=== PATIENT | female | born 1980 | race Caucasian/White ===

== ENCOUNTER → 2017-11-19 | Outpatient (CLI) | payer OTHER ==
[~2017-11-19] MED LIST: FLUT0.0529 NAE; IUD'IUD INT UTER
== END | disposition home or self-care (01) ==
LOC: C.LABSPEC 17:35
PROVIDERS: ATTEND Obstetrics & Gynecology
DX: O09.521 Supervision of elderly multigravida, first trimester (principal)

== ENCOUNTER → 2017-11-19 | Outpatient (CLI) | payer OTHER | END | disposition home or self-care (01) | LOC: C.PAPS 07:59 | PROVIDERS: ATTEND Obstetrics & Gynecology | DX: O09.521 Supervision of elderly multigravida, first trimester (principal) ==

== ENCOUNTER → 2017-11-22 | Outpatient (CLI) | payer OTHER ==
[2017-11-22 12:15] LABS: BASO % 0.4 %; BASO ABS # 0.03 K/uL (0-0.2); EOS ABS # 0.23 K/uL (0-0.5); HEMATOCRIT 36.4 % (37-47); HEMOGLOBIN 12.6 g/dL (12.0-16.0); IG# 0.02 K/uL (0.00-0.02); LYMPH % 25.3 %; LYMPH ABS # 1.91 K/uL (1.2-3.4); MEAN CELL VOLUME 89.9 fL (80-100); MEAN CORPUSCULAR HEMOGLOBIN 31.1 pg (25-34); MEAN CORPUSCULAR HGB CONC 34.6 g/dl (32-36); MEAN PLATELET VOLUME 11.2 fL (7.4-10.4); MONO % 7.3 %; MONO ABS # 0.55 K/uL (0.11-0.59); NEUT % 63.7 %; NEUT ABS # 4.82 K/uL (1.4-6.5); PLATELET COUNT 232 K/uL (130-400); RED CELL DISTRIBUTION WIDTH CV 12.9 % (11.5-14.5); RED CELL DISTRIBUTION WIDTH SD 42.1 fL (36.4-46.3); WHITE BLOOD COUNT 7.56 K/uL (4.8-10.8)
== END | disposition home or self-care (01) ==
LOC: C.LAB1850 10:03
PROVIDERS: ATTEND Obstetrics & Gynecology
DX: O09.521 Supervision of elderly multigravida, first trimester (principal)

== ENCOUNTER → 2017-12-10 | Outpatient (CLI) | payer OTHER | END | disposition home or self-care (01) | LOC: C.LABSPEC 17:26 | PROVIDERS: ATTEND Obstetrics & Gynecology | DX: N76.0 Acute vaginitis (principal) ==

== ENCOUNTER → 2017-12-31 | Outpatient (CLI) | payer OTHER | END | disposition home or self-care (01) | LOC: C.LAB1850 13:43 | PROVIDERS: ATTEND Obstetrics & Gynecology | DX: O09.522 Supervision of elderly multigravida, second trimester (principal); Z3A.00 Weeks of gestation of pregnancy not specified ==

== ENCOUNTER → 2018-03-24 | Outpatient (CLI) | payer OTHER ==
[2018-03-24 12:15] LABS: HEMATOCRIT 36.4 % (37-47); HEMOGLOBIN 12.2 g/dL (12.0-16.0)
== END | disposition home or self-care (01) ==
LOC: C.LAB1850 10:34
PROVIDERS: ATTEND Obstetrics & Gynecology
DX: O09.523 Supervision of elderly multigravida, third trimester (principal); Z3A.00 Weeks of gestation of pregnancy not specified

== ENCOUNTER 2018-06-14 10:18 | Outpatient (CLI) | payer OTHER | END 2018-06-14 12:55 | disposition home or self-care (01) | LOC: C.LD 10:18 → C.OPB 10:18 → UNDOADMIN 10:18 → C.OPB 12:55 → EDSTATUS 06-15 13:22 | PROVIDERS: ATTEND Obstetrics & Gynecology | DX: O09.523 Supervision of elderly multigravida, third trimester (principal); Z3A.00 Weeks of gestation of pregnancy not specified ==

== ENCOUNTER 2018-06-18 02:32 | Inpatient (IN) | payer OTHER ==
[~2018-06-18] VITALS: Ht 167.6 cm; Wt 83.6 kg
[2018-06-18] MEDS ORDERED: LACTATED RINGER'S 1000ML 1,000 ML IV PRN (02:35)
[2018-06-18] MEDS ORDERED: LACTATED RINGER'S 1000ML 1,000 ML IV SCH (02:35)
[2018-06-18 03:11] LABS: HEMOGLOBIN 13.2 g/dL (12.0-16.0); MEAN CELL VOLUME 92.2 fL (80-100); MEAN CORPUSCULAR HEMOGLOBIN 31.2 pg (25-34); MEAN CORPUSCULAR HGB CONC 33.8 g/dl (32-36); MEAN PLATELET VOLUME 12.2 fL (7.4-10.4); PLATELET COUNT 174 K/uL (130-400); RED CELL DISTRIBUTION WIDTH CV 13.3 % (11.5-14.5); RED CELL DISTRIBUTION WIDTH SD 44.2 fL (36.4-46.3); WHITE BLOOD COUNT 10.49 K/uL (4.8-10.8)
[2018-06-18 04:15] VITALS: Ht 167.6 cm; Wt 83.6 kg
[2018-06-18] MEDS ORDERED: HYDROCORTISONE ACETATE 25 MG SUPP PR PRN (04:15)
[2018-06-18] MEDS ORDERED: BENZOCAINE 20% AER SPR 82.5 GM CAN EXT PRN (04:15)
[2018-06-18] MEDS ORDERED: LANOLIN OINT EXT PRN (04:15)
[2018-06-18] MEDS ORDERED: OXYTOCIN 30 UNITS/500ML NSS IV PRN (04:15)
[2018-06-18] MEDS ORDERED: OXYCODONE/ACETAMINOPHEN 5-325 TAB PO PRN (04:15)
[2018-06-18] MEDS ORDERED: ACETAMINOPHEN 325 MG TAB PO PRN (04:15)
[2018-06-18] MEDS ORDERED: SUPERCREAM 0.870 % 15GM JAR EXT PRN (04:15)
[2018-06-18] MEDS ORDERED: PRENTAB65 PO (04:23)
--- NOTE | 2018-06-18 04:30 | Vaginal Delivery Summary ---
Vaginal Delivery Summary Predelivery diagnoses: 37-year-old 001 at 40 weeks 3 days, spontaneous labor, advanced maternal age Postdelivery diagnoses: Same plus avulsion of cord during placental delivery Procedure: Spontaneous vaginal delivery, manual extraction of placenta Surgeon: Dr. Starkey Findings: Viable male , Apgars 9 and 10. Weight pending, please see nursery records. First-degree perineal laceration, hemostatic. Estimated blood loss: 300 mL Complications: Avulsion of umbilical cord during delivery of placenta, requiring manual extraction Description of delivery: The patient arrived in spontaneous labor, progressed to complete and began to push. In the knee-chest position, she spontaneously vaginally delivered a viable male from the cephalic presentation. Rupture of membranes occurred after delivery of head. The head delivered in right occiput anterior position, nuchal cord 1 was noted and easily reduced. The anterior shoulder was delivered polyp followed by posterior shoulder followed by body. A spontaneous cry was heard, the cord was doubly clamped and cut and the baby was handed to mother. Cord blood was obtained. During active management of the third stage of labor, the umbilical cord avulsed from the placenta. The placenta was then removed via manual extraction. A sweep of the uterus after delivery of the placenta revealed a large piece of membranes, this was gently removed using ring forceps. Pitocin was given and the uterus became firm. The cervix vagina and perineum were inspected, a first-degree perineal laceration was noted, this was hemostatic and patient did not desire repair. Excellent hemostasis was noted. Mother and baby are recovering in stable and good condition in the room. Sponge, instrument counts are correct at the conclusion of the delivery 2.
[2018-06-18] MEDS ORDERED: CEFAZOLIN IV 1,000 MG in DEXTROSE 5% 50ML 50 ML IV SCH (04:45)
[2018-06-18] MEDS: CEFAZOLIN IV 1,000 MG in SYRINGE 0 ML IV SCH ×3 (05:34→21:11)
[2018-06-18 06:15] VITALS: BP 115/77; PULSE 69; TEMP 36.8
[2018-06-18 07:45] VITALS: BP 111/73; PULSE 79; TEMP 36.7
[2018-06-18] MEDS: DOCUSATE SODIUM 100 MG CAP PO SCH ×2 (08:11→19:46)
[2018-06-18] MEDS: IBUPROFEN 600 MG TAB PO PRN ×4 (08:15→23:49)
[2018-06-18 12:15] VITALS: BP 114/73; PULSE 79; TEMP 36.6
[2018-06-18 15:57] VITALS: BP 120/81; PULSE 58; TEMP 36.5; O2SAT 99
[2018-06-18 19:48] VITALS: BP 122/77; PULSE 74; TEMP 36.7; O2SAT 97
[2018-06-18 23:45] VITALS: BP 115/73; PULSE 71; TEMP 36.6; O2SAT 98
[2018-06-19 04:30] VITALS: BP 109/69; PULSE 73; TEMP 36.7; O2SAT 97
[2018-06-19 07:00] LABS: HEMOGLOBIN 11.8 g/dL (12.0-16.0)
[2018-06-19 08:30] VITALS: BP 111/74; PULSE 74; TEMP 36.7
[2018-06-19] MEDS: DOCUSATE SODIUM 100 MG CAP PO SCH (08:37)
[2018-06-19] MEDS ORDERED: BISACODYL 5 MG TABEC ONE (08:38)
--- NOTE | 2018-06-19 09:12 | Progress Note ---
Subjective Jun 19, 2018. Subjective conversation w/ patient, physical exam, lab review Ambulation: ambulating normally Voiding: no voiding problems Passing Gas: Yes Diet Tolerance: Regular Diet Lochia: Small Feeding Type: Breast Feeding Pain: controlled Objective Vital Signs Date Time Temp Pulse Resp B/P (MAP) Pulse Ox O2 Delivery O2 Flow Rate FiO2 06/19/18 04:30 36.7 73 16 109/69 (82) 97 Room Air 06/18/18 23:45 36.6 71 16 115/73 (87) 98 Room Air 06/18/18 23:45 98 Room Air 06/18/18 19:48 36.7 74 18 122/77 (92) 97 Room Air 06/18/18 15:57 36.5 58 18 120/81 (94) 99 Room Air 06/18/18 15:57 Room Air 06/18/18 12:15 36.6 79 20 114/73 (87) Physical Exam General Appearance: WELL-APPEARING, WD/WN, NO APPARENT DISTRESS Abdomen: non tender, soft Fundus: Firm, Non-Tender, Relation to Umbilicus (at u) Extremities: non-tender, normal inspection, no pedal edema Laboratory Results Last 24 Hours Test 06/19/18 06:21 Hemoglobin 11.8 g/dL Hematocrit 35.0 % Assessment and Plan Post- Day#: 1 Continue Routine Care: Doing well. Plan d/c. Instructions given.
--- NOTE | 2018-06-19 09:14 | Discharge Instructions ---
Discharge Instructions Date of Service Jun 19, 2018. Admission Reason for Admission: LABOR Discharge Discharge Diagnosis / Problem: s/p vaginal delivery Discharge Goals Goal(s): Routine recovery after delivery Medications Continue Dispensed Medications: supercream, dermaplast, tucks, lansinoh Activity Recommendations Activity Limitations: per Instructions/Follow-up section . Instructions / Follow-Up Instructions / Follow-Up ACTIVITY RECOMMENDATIONS: * Gradual return to full activity over the next 2-3 weeks. * No lifting - nothing heavier than baby over the next 2-3 weeks. * Do not engage in vigorous exercise, sexual activity or sports until cleared by your physician. * Do not drive or operate any motorized equipment until cleared by your physician. * You may shower/bathe daily. MEDICATIONS: For discomfort or pain, you may use Acetaminophen (Tylenol), Ibuprofen (Advil), or Naproxen (Aleve) following the package directions. For constipation you may use Colace following the package directions. BREAST CARE: If you are not breast feeding: * Wear a supportive bra 24 hours a day for one to two weeks. * Avoid stimulating your breasts and nipples as much as possible during the first few weeks after delivery. * When taking a shower, have the warm water hit your back, not breasts. * When your breasts feel full, apply ice packs. Usually three to four times a day helps ease the discomfort. * Take a mild pain medication (Tylenol / Motrin) when you are uncomfortable. If breast feeding: * Use breast milk to lubricate nipples. Lansinoh cream may be used for sore nipples. You do not need to remove cream prior to breast feeding. If using a different brand of cream, check the label for directions regarding removal of cream prior to nursing. * Wear a supportive bra. * If having problems with breasts or breast feeding, call a energy consultant or your health care provider. EPISIOTOMY CARE: After delivery, if you have an episiotomy (stitches), the following steps will ease discomfort and aid healing. * For the first 24 hours after delivery, place ice packs next to your episiotomy to help reduce swelling. * After the first 24 hour-period, sitz baths, either portable or in the tub, are suggested. A shower with a shower arm sprayed over the episiotomy may be comforting. * Aracelis care should be done after each voiding and bowel movement. Squirt warm water from a plastic bottle over the perineum (region of the body between the anus and urinary opening) and pat dry. * Use Dermoplast to ease discomfort. Shake container. [place] directly over the episiotomy. Place a Tucks on a clean sanitary pad next to your episiotomy. SPECIAL CARE INSTRUCTIONS: When you are discharged from the hospital, it is important for you to follow the instructions listed below: * During the first week at home, you should be able to care for yourself and your baby. In addition, the usual light household activities are encouraged. * Limit your activities to the way you feel. Do not try to clean the house or move furniture. Be sensible. * If you actively engage in sports and have done so up until the time of your delivery, you may resume these activities as soon as you feel able. This may take up to one month or even longer. Use good judgment. * Continue to take your vitamins for at least six weeks after the of your baby. * Your diet need not be limited unless you were on a special diet before your delivery. Breast-feeding mothers need around 2500 calories per day and at least 64-80 ounces of fluid per day (8 to 10 glasses). * You should eat foods from the four major food groups. Crash diets or fad diets are to be avoided. Eating lean meats, fresh fruits and vegetables, low-fat dairy products, high fiber foods and a regular exercise program, will help you get back to your pre- weight without putting your health at risk. * Constipation is sometimes a problem after delivery. Take a mild laxative as needed. If breast feeding, Milk of Magnesia is acceptable to use. You may use a suppository or Fleets enema if no episiotomy. * A daily shower or tub bath is suggested. Be sure to thoroughly and gently dry the perineum. * A bloody vaginal discharge will usually continue until around four weeks post . A small amount of bleeding may continue for as long as six weeks. Vaginal discharge changes from the bright red bleeding after delivery to pink then brownish and finally yellowish-pink before becoming white and disappearing. * Bleeding may increase with activity. Your first period may come in 4-8 weeks. If you are breast feeding, your period may be delayed even longer. * Banner (sex) can begin whenever both you and your partner feel comfortable and do not have any form of genital infection. It is recommended that you wait at least six weeks for internal and external healing to occur. If you have questions, please talk to your health care practitioner. A condom should be used to prevent infection and . * Foreplay, gentle intercourse and lubrication is very important the first several times to prevent pain. A water-based lubricant such as K-Y jelly or Astroglide may be used. * If you have RH negative blood and your baby is RH positive, you will receive RHOGAM by injection prior to discharge. The nurse will give you a card to keep with you that has the date and place that you received RHOGAM after delivery. * During your care, you had a Rubella screen done to check for the presence of rubella antibodies in your blood. If your test was negative, you will receive a Rubella vaccine prior to discharge. This vaccine may cause a fever, soreness at the injection site and flu-like symptoms. If these symptoms persist, notify your health care practitioner. is not advised for one month after a Rubella vaccine. * Verbalizes understanding of car seat law as reviewed with patient nursing. * Car Seat hand-out given and reviewed with patient by nursing. * Shaken baby information reviewed with patient by nursing. Call you doctor if: * Heavy bleeding (saturating several pads an hour) or passing clots the size of your fist. * A fever >101 degrees F (38.3 degrees C) on two occasions four hours apart and /or chills. * Unusual pain in the pelvic or vaginal areas. * "Baby Blues" lasting longer than two weeks. If you have any questions or concerns, call your health care practitioner at . FOLLOW UP VISIT: * Please call the office at to schedule a 6 week examination. It is important you keep this appointment. It is important for you to make arrangements for either yearly or twice yearly check-ups thereafter. Current Hospital Diet Patient's current hospital diet: Regular OB Diet Discharge Diet Recommended Diet: Regular Diet Pending Studies Studies pending at discharge: no Medical Emergencies . Who to Call and When: Medical Emergencies: If at any time you feel your situation is an emergency, please call 911 immediately. . Non-Emergent Contact Non-Emergency issues call your: Taxicab Driver . . "Provider Documentation" section prepared by Britta Mccray. .
[2018-06-19 12:25] VITALS: BP_DIAS 74; PULSE 74; TEMP 36.7
[2018-06-19] MEDS ORDERED: BISACODYL 5 MG TABEC PO SCH (20:00)
== END 2018-06-19 13:25 | disposition home or self-care (01) | DRG 775 ==
LOC: C.OPB 02:32 → C.LD 02:32 → C.OPB 02:36 → C.LD 03:40 → C.OBG 06:15
PROVIDERS: ADMIT Obstetrics & Gynecology; ATTEND Obstetrics & Gynecology
PROC: 10E0XZZ Delivery of Products of Conception, External Approach (ICD-10-PCS; principal; 2018-06-18)
DX: O69.89X0 Labor and delivery complicated by other cord complications, not applicable or unspecified (principal); O69.81X0 Labor and delivery complicated by cord around neck, without compression, not applicable or unspecified; O09.523 Supervision of elderly multigravida, third trimester; Z3A.40 40 weeks gestation of pregnancy; Z37.0 Single live birth